=== PATIENT | female | born 1955 | race African-American/Black ===

== ENCOUNTER 2018-06-27 14:00 | Emergency (ER) | payer OTHER ==
[~2018-06-27] VITALS: Ht 160 cm; Wt 86.2 kg
[~2018-06-27 14:00] MED LIST: AMBIEN 10 MG TA10 MG PO; CALTRATE 600 +1 EACH; CELEBREX 200 M200 M1 PO; CYCLOBENZAPRINE5 MG PO; ESTRACE0.5 MG PO; LEVOXYL112 MCG PO; LYRICA 50 MG50 MG; NORCO 5-325 TA1 EACH PO; PEPCID40 MG PO; PROTONIX40 M2 PO; SAVELLA50 MG PO; TENORMIN25 MG PO; ULTRAM 50MG TAB50 MG PO; ZOFRAN ODT4 MG PO
[2018-06-27 15:43] LABS: URINE BILIRUBIN NEGATIVE (Negative); URINE BLOOD NEGATIVE (Negative); URINE CLARITY CLEAR; URINE COLOR YELLOW; URINE GLUCOSE-RANDOM* NEGATIVE (Negative); URINE KETONES TRACE (Negative); URINE LEUKOCYTES-REFLEX NEGATIVE (Negative); URINE NITRITE-REFLEX NEGATIVE (Negative); URINE PROTEIN (DIPSTICK) NEGATIVE (Negative); URINE SPECIFIC GRAVITY >= 1.030 (1.005-1.035); URINE UROBILINOGEN 0.2 E.U./dl (0.2-1.0)
[2018-06-27 16:03] LABS: BASOPHILS 0.3 % (0.0-2.0); EOSINOPHILS 0.1 % (0.0-3.0); HEMATOCRIT 42.2 % (37.0-47.0); HEMOGLOBIN 14.4 gm/dL (12.0-15.0); MCH 31.7 pg (26.0-34.0); MCHC 34.2 g/dL (28.0-37.0); MCV 92.5 fL (80.0-100.0); MONOCYTES 3.5 % (1.0-8.0); PLATELET COUNT 176 thou/uL (150-400); POLYS 88.1 % (36.0-66.0); RBC 4.56 mil/uL (4.20-5.00); RDW 13.4 % (10.5-14.5); WBC 4.6 thou/uL (4.0-11.0)
[2018-06-27 16:12] LABS: CALCIUM 9.5 mg/dL (8.5-10.1); CREATININE 1.1 mg/dL (0.6-1.0)
[2018-06-27 16:17] LABS: ALBUMIN 3.7 g/dL (3.4-5.0); TOTAL BILIRUBIN 0.3 mg/dL (<0.1-1.0); TOTAL PROTEIN 7.9 g/dL (6.4-8.2)
[2018-06-27] MEDS ORDERED: ZOFRAN ODT4 MG PO (16:43)
[2018-06-27] MEDS ORDERED: NORCO 5-325 TA1 EACH PO (16:43)
[2018-06-27 17:41] VITALS: BP 136/78
== END 2018-06-27 17:42 | disposition home or self-care (01) ==
LOC: ER 14:00
PROVIDERS: Emergency Medicine
DX: R19.7 Diarrhea, unspecified (principal); R11.2 Nausea with vomiting, unspecified; K21.9 Gastro-esophageal reflux disease without esophagitis; I10 Essential (primary) hypertension; M79.7 Fibromyalgia

== ENCOUNTER 2019-02-11 13:10 | Emergency (ER) | payer OTHER ==
[~2019-02-11] VITALS: Ht 172.7 cm; Wt 84.4 kg
[2019-02-11 13:47] LABS: AMP/METHAMP Negative (Negative); BARBITURATES Negative (Negative); BENZODIAZEPINES Negative (Negative); COCAINE Negative (Negative); METHADONE Negative (Negative); OPIATES Negative (Negative); PCP Negative (Negative)
[2019-02-11 14:20] LABS: ABSOLUTE NEUTROPHILS 1.9 thou/uL (1.4-8.2); BASOPHILS 0.6 % (0.0-2.0); EOSINOPHILS 1.2 % (0.0-3.0); HEMATOCRIT 36.2 % (37.0-47.0); HEMOGLOBIN 12.4 gm/dL (12.0-15.0); LYMPHOCYTES 44.8 % (24.0-44.0); MCHC 34.3 g/dL (28.0-37.0); MCV 93.5 fL (80.0-100.0); MONOCYTES 9.3 % (1.0-8.0); PLATELET COUNT 217 thou/uL (150-400); POLYS 44.1 % (36.0-66.0); RBC 3.87 mil/uL (4.20-5.00); RDW 14.2 % (10.5-14.5); WBC 4.4 thou/uL (4.0-11.0)
[2019-02-11 15:03] LABS: ANION GAP 3 mmol/L (7-16); BUN 15 mg/dL (7-18); CHLORIDE 104 mmol/L (98-107); CO2 29 mmol/L (21-32); CREATININE 0.9 mg/dL (0.6-1.0); GLUCOSE 117 mg/dL (74-106); POTASSIUM 4.5 mmol/L (3.5-5.1); SODIUM 136 mmol/L (136-145)
[2019-02-11 15:13] LABS: ALBUMIN 3.1 g/dL (3.4-5.0); SGOT 16 U/L (15-37); SGPT 22 U/L (30-65); TOTAL BILIRUBIN 0.2 mg/dL (<0.1-1.0); TOTAL PROTEIN 6.6 g/dL (6.4-8.2); TROPONIN-I <0.06 ng/mL (<0.06)
[2019-02-11] MEDS ORDERED: VENTOLIN HFA 1818 GM INH (15:23)
[2019-02-11 15:59] VITALS: BP 114/66
[2019-02-11 16:17] LABS: APTT 26.1 Seconds (24.5-32.8); PROTIME 9.8 Seconds (9.3-11.4)
--- NOTE | 2019-02-12 09:52 | EKG ---
[address] [address] ELECTROCARDIOGRAM REPORT Name: CURT GUZMAN Room #: [facility]#: [id number] ������������������ Admission: 02/11/19 ������������������ Attend Phys: Discharge: 02/11/19 ������������������ Date of : 59 Report #: [id number] ����������������������������������������������������������������� [id number] THIS REPORT FOR: //name// [facility] ED Test Date: 2019-02-11 Test Time: 13:19:33 Pat Name: CURT GUZMAN Department: Room: Gender: F Pst Specialist: FLAVIA : 1955 Requested By: Jose De Jesus Watson Order Number: [id number] MD: Andi Armijo Measurements Intervals [place] Rate: 60 P: 65 AR: 143 QRS: 16 QRSD: 100 T: -9 QT: 413 QTc: 413 Interpretive Statements Sinus rhythm Borderline T abnormalities, inferior leads Compared to ECG 04/29/2016 12:26:31 No significant changes Electronically Signed On 02-12-2019 9:52:18 CDT by Andi Armijo [email or web address] ��������������������������������������������� <ELECTRONICALLY SIGNED> ���������������������������������������� By: Andi Armijo MD, [facility] ��������������������������������������������� 02/12/19 0952 1319 18 Andi Armijo MD, FAC /EPI
== END 2019-02-11 16:00 | disposition home or self-care (01) ==
LOC: ER 13:10
PROVIDERS: Emergency Medicine
DX: R00.2 Palpitations (principal); R06.02 Shortness of breath; R53.83 Other fatigue; K21.9 Gastro-esophageal reflux disease without esophagitis; I10 Essential (primary) hypertension; M79.7 Fibromyalgia

== ENCOUNTER 2020-01-20 14:52 | Emergency (ER) | payer OTHER ==
[~2020-01-20] VITALS: Ht 160 cm; Wt 90.7 kg
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
[~2020-01-20 14:52] MED LIST changes: +VENTOLIN HFA 1818 GM INH
[2020-01-20] MEDS ORDERED: ZANAFLEX4 MG PO (15:11)
[2020-01-20] MEDS ORDERED: REVIA 50 MG TAB50 M1 PO (15:20)
[2020-01-20] MEDS ORDERED: MOBIC7.5 MG PO (16:17)
[2020-01-20] MEDS ORDERED: NORFLEX100 MG PO (16:17)
[2020-01-20] MEDS ORDERED: PERCOCET 5-3251 EACH PO (16:17)
[2020-01-20] MEDS ORDERED: SENNA-DOCUSATE1 EAC1 PO (16:18)
[2020-01-20 16:43] VITALS: BP 161/85
== END 2020-01-20 16:44 | disposition home or self-care (01) ==
LOC: ER 14:52
DX: S39.012A Strain of muscle, fascia and tendon of lower back, initial encounter (principal); S16.1XXA Strain of muscle, fascia and tendon at neck level, initial encounter; S29.012A Strain of muscle and tendon of back wall of thorax, initial encounter; M25.571 Pain in right ankle and joints of right foot; I10 Essential (primary) hypertension; K21.9 Gastro-esophageal reflux disease without esophagitis; Z87.891 Personal history of nicotine dependence; Z79.899 Other long term (current) drug therapy; V49.9XXA Car occupant (driver) (passenger) injured in unspecified traffic accident, initial encounter; Y93.89 Activity, other specified; Y92.410 Unspecified street and highway as the place of occurrence of the external cause; Y99.8 Other external cause status

== ENCOUNTER 2020-01-23 08:38 | Emergency (ER) | payer OTHER ==
[~2020-01-23] VITALS: Ht 160 cm; Wt 90.7 kg
[~2020-01-23 08:38] MED LIST changes: +MOBIC7.5 MG PO; +NORFLEX100 MG PO; +PERCOCET 5-3251 EACH PO; +REVIA 50 MG TAB50 M1 PO; +SENNA-DOCUSATE1 EAC1 PO; +ZANAFLEX4 MG PO
[2020-01-23] MEDS ORDERED: ZOFRAN ODT4 MG PO (09:03)
[2020-01-23 09:13] VITALS: BP 158/82
== END 2020-01-23 09:23 | disposition home or self-care (01) ==
LOC: ER 08:38
DX: S06.0X0A Concussion without loss of consciousness, initial encounter (principal); K21.9 Gastro-esophageal reflux disease without esophagitis; I10 Essential (primary) hypertension; V89.2XXA Person injured in unspecified motor-vehicle accident, traffic, initial encounter; Y93.89 Activity, other specified; Y92.89 Other specified places as the place of occurrence of the external cause; Y99.8 Other external cause status

== ENCOUNTER 2020-04-26 18:33 | Emergency (ER) | payer OTHER ==
[~2020-04-26] VITALS: Ht 160 cm; Wt 90.7 kg
[2020-04-26] MEDS ORDERED: AMITRIPTYLINE H10 M1 PO (19:04)
[2020-04-26 21:28] LABS: URINE BILIRUBIN NEGATIVE (Negative); URINE BLOOD NEGATIVE (Negative); URINE CLARITY CLOUDY; URINE COLOR YELLOW; URINE GLUCOSE-RANDOM* NEGATIVE (Negative); URINE KETONES NEGATIVE (Negative); URINE LEUKOCYTES-REFLEX NEGATIVE (Negative); URINE NITRITE-REFLEX NEGATIVE (Negative); URINE PROTEIN (DIPSTICK) NEGATIVE (Negative); URINE SPECIFIC GRAVITY >= 1.030 (1.005-1.035); URINE UROBILINOGEN 0.2 E.U./dl (0.2-1.0)
[2020-04-26 21:37] LABS: ABSOLUTE NEUTROPHILS 1.9 thou/uL (1.4-8.2); BASOPHILS 0.7 % (0.0-2.0); EOSINOPHILS 0.6 % (0.0-3.0); HEMOGLOBIN 13.2 gm/dL (12.0-15.0); LYMPHOCYTES 57.3 % (24.0-44.0); MCH 30.9 pg (26.0-34.0); MCHC 32.9 g/dL (28.0-37.0); MCV 93.7 fL (80.0-100.0); PLATELET COUNT 197 thou/uL (150-400); POLYS 31.4 % (36.0-66.0); RBC 4.27 mil/uL (4.20-5.00)
[2020-04-26 21:43] LABS: ANION GAP 7 mmol/L (7-16); BUN 20 mg/dL (7-18); CALCIUM 8.8 mg/dL (8.5-10.1); CHLORIDE 104 mmol/L (98-107); CO2 30 mmol/L (21-32); CREATININE 0.9 mg/dL (0.6-1.0); GLUCOSE 109 mg/dL (74-106); POTASSIUM 3.9 mmol/L (3.5-5.1); SODIUM 141 mmol/L (136-145)
[2020-04-26 21:49] LABS: ALBUMIN 4.1 g/dL (3.4-5.0); DIRECT BILIRUBIN < 0.1 mg/dL (<0.1-0.2); LIPASE 135 U/L (73-393); SGOT 20 U/L (15-37); SGPT 26 U/L (30-65); TOTAL BILIRUBIN 0.2 mg/dL (0.2-1.0); TOTAL PROTEIN 7.5 g/dL (6.4-8.2)
[2020-04-26 22:57] VITALS: BP 171/93
== END 2020-04-26 23:20 | disposition home or self-care (01) ==
LOC: ER 18:33
PROVIDERS: Nurse Practitioner
DX: R10.31 Right lower quadrant pain (principal); I10 Essential (primary) hypertension; K21.9 Gastro-esophageal reflux disease without esophagitis; Z79.899 Other long term (current) drug therapy